=== PATIENT | male | born 1980 | race Two or more races ===

== ENCOUNTER 2017-03-31 17:39 | Emergency (ER) | payer SELFPAY ==
[2017-03-31 17:58] LABS: BILIRUBIN,URINE NEGATIVE (NEG); COLOR,URINE YELLOW; GLUCOSE,URINE NEGATIVE (NEG); NITRITE,URINE NEGATIVE (NEG); PROTEIN,URINE NEGATIVE (NEG-TRACE); UROBILINOGEN,URINE 0.2 mg/dL (0.2 mg/dL)
[2017-03-31 18:03] LABS: CLARITY,URINE CLEAR
[2017-03-31 18:05] LABS: BACTERIA,URINE 0 /HPF (0-FEW); WBC,URINE 0 /HPF (0-4)
[2017-03-31] MEDS: ONDANSETRON PF 4 MG/2 ML VIAL. IV ×2 (18:27)
[2017-03-31] MEDS: fentaNYL PF VIAL 100 MCG/2 ML VIAL IV ×2 (18:28)
[2017-03-31 18:29] LABS: BASO % 1 % (0-3); EOS # 1.5 x10^3/uL (0.0-0.7); EOS % 17 % (0-3); HEMATOCRIT 44.6 % (39.0-53.0); HEMOGLOBIN 15.4 g/dL (13.0-17.5); LYMPH # 2.9 x10^3/uL (1.0-4.8); LYMPH % 33 % (24-48); MEAN CORPUSCULAR HEMOGLOBIN 30 pg (25-35); MEAN CORPUSCULAR HGB CONC 35 g/dL (31-37); MEAN CORPUSCULAR VOLUME 88 fL (79-100); MONO # 0.4 x10^3/uL (0.0-1.1); MONO % 4 % (0-9); NEUT % 46 % (31-73); PLATELET COUNT 269 x10^3/uL (140-400); RED BLOOD COUNT 5.07 x10^6/uL (4.30-5.70); RED CELL DISTRIBUTION WIDTH 12.7 % (11.5-14.5); WHITE BLOOD COUNT 8.7 x10^3/uL (4.0-11.0)
[2017-03-31 18:40] LABS: ADD MAN DIFF? YES
[2017-03-31] MEDS: IV NORMAL SALINE 1000ML BAG 1,000 ML IV ×2 (18:47)
[2017-03-31 18:53] LABS: ANION GAP 10 (6-14); BLOOD UREA NITROGEN 15 mg/dL (8-26); BUN/CREATININE RATIO 17 (6-20); CALCIUM 8.6 mg/dL (8.5-10.1); CARBON DIOXIDE 26 mmol/L (21-32); CHLORIDE 101 mmol/L (98-107); CREATININE 0.9 mg/dL (0.7-1.3); GLUCOSE 182 mg/dL (70-99); POTASSIUM 3.6 mmol/L (3.5-5.1); SODIUM 137 mmol/L (136-145)
[2017-03-31 18:59] LABS: ALBUMIN 3.8 g/dL (3.4-5.0); ALK PHOS 123 U/L (46-116); ALT (SGPT) 58 U/L (16-63); AMYLASE 84 U/L (25-115); AST (SGOT) 21 U/L (15-37); LIPASE 168 U/L (73-393); TOTAL BILIRUBIN 0.2 mg/dL (0.2-1.0); TOTAL PROTEIN 7.8 g/dL (6.4-8.2)
[2017-03-31] MEDS: IOHEXOL 300 MG/ML 100ML VIAL. IV ×2 (19:27)
[2017-03-31] MEDS ORDERED: CONTRAST GIVEN MC ×2 (19:30)
[2017-03-31 20:02] LABS: % BANDS 2 % (0-9); % EOS 19 % (0-5); % LYMPHS 29 % (24-48); % MONOS 3 % (0-10); % SEGS 47 % (35-66)
[2017-03-31 20:04] LABS: PLT ESTIMATE ADEQUATE (ADEQUATE)
== END 2017-03-31 20:25 | disposition home or self-care (01) ==
LOC: ER 17:39
DX: N13.2 Hydronephrosis with renal and ureteral calculous obstruction (principal)
CPT/HCPCS: 36415; 74177; 80053; 81001; 82150; 83690; 85007; 85025; 96361; 96374; 96375; 99285-25; J2405; J3010; J7030; Q9967

== ENCOUNTER → 2017-10-28 | Emergency (ER) | payer SELFPAY ==
[~2017-10-28] MED LIST: ACET-704 PO; KETOROLAC 30 MG/ML VIAL. ONE; ORPHENADRINE CITRATE 60 MG/2 ML VIAL. ONE; TAMS0.4C97 PO
[2017-10-28 20:50] VITALS: BP 132/94
== END ==
LOC: ER 20:25
DX: M54.5 Low back pain (principal); W01.0XXA Fall on same level from slipping, tripping and stumbling without subsequent striking against object, initial encounter; Y93.89 Activity, other specified; Y92.89 Other specified places as the place of occurrence of the external cause; Y99.0 Civilian activity done for income or pay
CPT/HCPCS: 99281; J1885; J2360

== ENCOUNTER 2021-03-29 15:59 | Emergency (ER) | payer SELFPAY ==
[~2021-03-29] VITALS: Ht 162.6 cm; Wt 77.2 kg
[~2021-03-29 15:59] MED LIST changes: -KETOROLAC 30 MG/ML VIAL. ONE; -ORPHENADRINE CITRATE 60 MG/2 ML VIAL. ONE
--- NOTE | 2021-03-29 20:19 | PHYS DOC ---
Past Medical History Past Medical History: No Pertinent History Past Surgical History: No Surgical History Smoking Status: Never Smoker Alcohol Use: None Drug Use: None General Adult EDM: Chief Complaint: DIZZY/LIGHT HEADED HPI: HPI: Patient is a 40 year old male patient with no significant medical history p resenting today with multiple complaints. 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 He states he became weak his legs gave out, he fell landing on his bottom. Patient states he passed out for a few seconds. He states after that he developed 6 out of 10 left-sided chest pain and his heart was beating very fast. He states the chest pain was radiating to his back. He states he has had palpitations as well as this chest pain intermittently since yesterday. He states today he feels his head is light. Patient denies any nausea, vomiting, headache. 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 Denies fever or chills. [] Eyes: Denies change in visual acuity. [] HENT: Denies nasal congestion or sore throat. [] Respiratory: Denies cough or shortness of breath. [] Cardiovascular: Reports chest pain and palpitations GI: Denies abdominal pain, nausea, vomiting, bloody stools or diarrhea. [] : Denies dysuria. [] Musculoskeletal: Denies back pain or joint pain. [] Integument: Denies rash. [] Neurologic: Reports syncope episode, lightheadedness, denies headache, focal weakness or sensory changes. [] Psychiatric: Denies depression or anxiety. [] Heart Score: C/O Chest Pain: Yes HEART Score for Chest Pain: HEART Score for Chest Pain Response (Comments) Value History Slighlty/Non-Suspicious 0 ECG Normal 0 Age < 45 0 Risk Factors No Risk Factors 0 Troponin < Normal Limit 0 Total 0 Risk Factors: Risk Factors: DM, Current or recent (<one month) smoker, HTN, HLP, family history of CAD, obesity. Risk Scores: Score 0 - 3: 2.5% MACE over next 6 weeks - Discharge Home Score 4 - 6: 20.3% MACE over next 6 weeks - Admit for Clinical Observation Score 7 - 10: 72.7% MACE over next 6 weeks - Early Invasive Strategies Allergies: Allergies: Allergies Coded Allergies Type Severity Reaction Last Updated Verified No Known Drug Allergies 03/31/17 No Physical Exam: PE: Constitutional: Well developed, well nourished, no acute distress, non-toxic appearance. [] HENT: Normocephalic, atraumatic, bilateral external ears normal, oropharynx moist, no oral exudates, nose normal. [] Eyes: PERRLA, EOMI, conjunctiva normal, no discharge. [] Neck: Normal range of motion, no tenderness, supple, no stridor. [] Cardiovascular:Heart rate regular rhythm, no murmur [] Lungs & Thorax: Bilateral breath sounds clear to auscultation [] Abdomen: Bowel sounds normal, soft, no tenderness, no masses, no pulsatile masses. [] Skin: Warm, dry, no erythema, no rash. [] Back: No tenderness, no CVA tenderness. [] Extremities: No tenderness, no cyanosis, no clubbing, ROM intact, no edema. [] Neurologic: Alert and oriented X 3, normal motor function, normal sensory function, no focal deficits noted. [] Psychologic: Affect normal, judgement normal, mood normal. [] Current Patient Data: Vital Signs: Vital Signs Date Time Temp Pulse Resp B/P (MAP) Pulse Ox O2 Delivery O2 Flow Rate FiO2 03/29/21 16:00 98.1 71 16 128/79 (95) 98 Room Air 98.1 EKG: EKG: [] Radiology/Procedures: Radiology/Procedures: [address] Barnes sinus rhythm heart rate 66 no STEMI [] [address] Barnes sinus rhythm heart rate 61 no STEMI [] Course & Med Decision Making: Course & Med Decision Making Pertinent Labs and Imaging studies reviewed. (See chart for details) This is a 40-year-old male patient presented to the ED today with multiple complaints. Patient states yesterday he developed weakness around 11 PM while at work, he felt landing on his bottom. Denies any back pain. He is c omplaining of his head feeling light, palpitations and intermittent episodes of chest pain. CT of the head is negative. Chest x-ray interpreted by Dr. Camejo is negative for any acute findings. High-sensitivity troponin is normal, EKG is normal. D-dimer is normal. CBC no acute findings, CMP with AST of 48, ALT of 110, ALK 122-denies any abdominal pain. Patient's vitals are stable Re-evaluation of patient, he states he feels completely normal and would like to go home and eat. Instructed to follow-up with PCP and provided a paint pourer for f/u [place] Disclaimer: Dragon Disclaimer: This electronic medical record was generated, in whole or in part, using a voice recognition dictation system. Departure Departure Impression: Primary Impression: Lightheaded Additional Impressions: Syncope Qualified Codes: R55 - Syncope and collapse Fall Qualified Codes: W19.XXXA - Unspecified fall, initial encounter Chest pain Qualified Codes: R07.9 - Chest pain, unspecified Disposition: HOME / SELF CARE / HOMELESS Condition: STABLE Referrals: NO PCP (PCP) AMIRA BAY MD Follow-up with your primary care doctor as well as the provided paint pourer Patient Instructions: Chest Pain (Nonspecific), [id number], Syncope, [id number] Additional Instructions: You were evaluated in the emergency room, we did a CT of your head which was n egative for any acute findings, your lab work is negative for any acute findings. Please follow-up with your primary care doctor as well as the provided paint pourer in the next 1 to 2 weeks THANG ALVAREZ APRN Mar 29, 2021 20:19
[2021-03-29 20:34] LABS: BASO % 1 % (0-3); EOS # 0.9 x10^3/uL (0.0-0.7); EOS % 13 % (0-3); HEMATOCRIT 44.8 % (39.0-53.0); HEMOGLOBIN 15.3 g/dL (13.0-17.5); LYMPH # 2.8 x10^3/uL (1.0-4.8); LYMPH % 41 % (24-48); MEAN CORPUSCULAR HEMOGLOBIN 30 pg (25-35); MEAN CORPUSCULAR HGB CONC 34 g/dL (31-37); MEAN CORPUSCULAR VOLUME 88 fL (79-100); MONO # 0.4 x10^3/uL (0.0-1.1); MONO % 6 % (0-9); NEUT # 2.8 x10^3/uL (1.8-7.7); NEUT % 40 % (31-73); PLATELET COUNT 261 x10^3/uL (140-400); RED BLOOD COUNT 5.08 x10^6/uL (4.30-5.70); RED CELL DISTRIBUTION WIDTH 12.8 % (11.5-14.5); WHITE BLOOD COUNT 6.9 x10^3/uL (4.0-11.0)
[2021-03-29 20:54] LABS: CALCIUM 8.7 mg/dL (8.5-10.1); CREATININE 0.7 mg/dL (0.7-1.3); GFR 124.3; POTASSIUM 3.9 mmol/L (3.5-5.1)
[2021-03-29 21:01] LABS: ALBUMIN 3.7 g/dL (3.4-5.0); ALBUMIN/GLOBULIN RATIO 0.9 (1.0-1.7); MAGNESIUM 2.4 mg/dL (1.8-2.4); TOTAL BILIRUBIN 0.2 mg/dL (0.2-1.0); TOTAL PROTEIN 7.7 g/dL (6.4-8.2)
--- NOTE | 2021-03-29 21:17 | RAD ---
Exam: CT head INDICATION: Syncope TECHNIQUE: Sequential axial images through the head were obtained without the administration of IV co ntrast. Exposure: One or more of the following in the visualized dose reduction techniques were utilized for this examination: 1. Automated exposure control 2. Adjustment of the MA and/or KV according to patient size 3. Use of iterative of reconstructive technique Comparisons: None FINDINGS: No focal parenchymal lesion or hemorrhage is identified. There is no midline shift or sulcal effaceme nt. No acute vascular territory infarction is identified. Hamilton-white distinction is preserved. The ventricular system is within normal limits without compression hydrocephalus. The basal cisterns are well maintained. The visualized portions of the paranasal sinuses and mastoid air cells are well-pneumatized. No acute fractures. IMPRESSION: No acute intracranial abnormality. Electronically signed by: Nando Lee MD (03/29/2021 9:14 PM) AYAAN
--- NOTE | 2021-03-29 22:26 | RAD ---
Exam: Chest one view INDICATION: Syncope TECHNIQUE: Frontal view of the chest Comparisons: None FINDINGS: The cardiomediastinal silhouette and pulmonary vessels are within normal limits. The lung and pleural spaces are clear. IMPRESSION: No acute cardiopulmonary process. Electronically signed by: Nando Lee MD (03/29/2021 10:24 PM) AYAAN
[2021-03-29 22:30] VITALS: BP 128/74
--- NOTE | 2021-03-30 08:33 | EKG ---
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
--- NOTE | 2021-03-30 08:36 | EKG ---
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
== END 2021-03-29 22:40 | disposition home or self-care (01) ==
LOC: ER 15:59
DX: R07.89 Other chest pain (principal); R55 Syncope and collapse; R00.2 Palpitations; G89.11 Acute pain due to trauma; W18.39XA Other fall on same level, initial encounter; Y93.89 Activity, other specified; Y92.89 Other specified places as the place of occurrence of the external cause; Y99.8 Other external cause status
CPT/HCPCS: 36415; 70450; 71045; 80053; 83735; 83880; 84443; 84484; 85025; 85379; 93005; 99285-25